=== PATIENT | female | born 1955 | race Caucasian/White ===

== ENCOUNTER 2018-12-15 09:48 | Inpatient (IN) | payer OTHER ==
[2018-12-15] VITALS (8 sets, daily range): BP systolic 98–147; BP diastolic 37–85
[~2018-12-15] VITALS: Ht 165.1 cm; Wt 95.3 kg
[2018-12-15] MEDS ORDERED: NEURONTIN 300300 M1 PO (10:01)
[2018-12-15] MEDS ORDERED: TRAMADOL 50 MG50 MG PO (10:01)
[2018-12-15] MEDS ORDERED: IBUPROFEN 800800 M1 PO (10:02)
[2018-12-15 10:14] LABS: ABSOLUTE NEUTROPHILS 5.9 thou/uL (1.4-8.2); BASOPHILS 0.5 % (0.0-2.0); EOSINOPHILS 1.8 % (0.0-3.0); HEMATOCRIT 32.7 % (37.0-47.0); HEMOGLOBIN 10.8 gm/dL (12.0-15.0); LYMPHOCYTES 14.8 % (24.0-44.0); MCH 30.6 pg (26.0-34.0); MCHC 33.1 g/dL (28.0-37.0); MCV 92.4 fL (80.0-100.0); PLATELET COUNT 210 thou/uL (150-400); POLYS 76.9 % (36.0-66.0); RBC 3.54 mil/uL (4.20-5.00); RDW 13.1 % (10.5-14.5); WBC 7.6 thou/uL (4.0-11.0)
[2018-12-15 10:27] LABS: CALCIUM 8.9 mg/dL (8.5-10.1); CREATININE 0.8 mg/dL (0.6-1.0); POTASSIUM 4.3 mmol/L (3.5-5.1)
[2018-12-15 10:29] LABS: TROPONIN-I 0.07 ng/mL (<0.06)
[2018-12-15 13:47] LABS: TSH 1.709 uIU/mL (0.358-3.740)
--- NOTE | 2018-12-15 17:11 | NUR ---
PT ARRIVED ON UNIT FROM ER THIS AFTERNOON. ADMISSION HX, ASSESSMENT AND EDUCATION COMPLETE. ORDERS IMPLEMENTED. PT C/O PAIN AND NAUSEA, BOTH WERE ADDRESSED WITH MEDICATION. PT RESTING, WILL CONTINUE TO MONITOR.
--- NOTE | 2018-12-15 18:33 | EKG ---
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 : 1955 Requested By: Hanna Chen Order Number: [id number] MD: Brian Allen Measurements Intervals [place] Rate: 57 P: 27 [place]: 165 QRS: 96 QRSD: 108 T: -50 QT: 442 QTc: 431 Interpretive Statements Sinus rhythm Right axis deviation Borderline repolarization abnormality No previous ECG available for comparison Electronically Signed On 12-15-2018 18:33:45 CDT by Brian Allen [email or web address] ��������������������������������������������� <ELECTRONICALLY SIGNED> ���������������������������������������� By: Brian Allen MD ��������������������������������������������� 12/15/18 1833 D: [id number] Brian Allen MD /[place]
--- NOTE | 2018-12-15 19:14 | NUR ---
17:54 LAB CALLED WITH CRITICAL TROPONIN (7.80). NOTIFIED PHYSICIAN, ORDERS RECIEVED AND PT TRANSFERRED TO CCU 204. REPORT CALLED TO
[2018-12-15 19:18] LABS: % SATURATION 16 % (20-39); IRON 42 ug/dL (50-170); TIBC 263 ug/dL (250-450)
--- NOTE | 2018-12-15 23:55 | NUR ---
REPORT RECIEVED FOR KAYLEEN ELDER AND ASSOCIATE DEAN OF STUDENTS. PT BOUGHT FROM PROSTHODONTIST/EDUCATOR IN FAIR CONDITION. RIGHT RADIAL CLOSURE DEVICE IN PLACE. INSTRUCTIONS FOR CARE AND STANDING ORDER RECIEVED FROM CATH RN AND TECH. VSS UPON ARRIVAL. C/O CHEST PAIN, PT STATED NOT BAD BEFORE CATH. PT ASSESSED AND RIGHT RADIAL CATH SITE ASSESSED BY RN AND CATH RN. WILL CONTINUE TO MONITOR.
[2018-12-16] VITALS (17 sets, daily range): BP systolic 95–154; BP diastolic 43–78
--- NOTE | 2018-12-16 03:58 | NUR ---
PT. ARRIVED AT FLOOR AT SHIFT CHANGE; AOX4 SLEEPING; PER ORDERS ASPIRIN 325 AND LOVENOX GIVEN; EKG PERFORMED; CARDIOLOGY NOTIFIED; ORDERS RECEIVED; C/O CHEST PAIN 04/20; CARDIOLOGY NOTIFIED; DR. JULES ARRIVED AROUND 2029; ORDERS RECEIVED; PT. PREPARED TO BE TRANSFER TO LOG HANDLING EQUIPMENT OPERATOR; AFTER CATH PT. TRANSFER TO ICU; ASSESSMENT CHARGED.
[2018-12-16 04:29] LABS: HEMATOCRIT 32.2 % (37.0-47.0); HEMOGLOBIN 10.5 gm/dL (12.0-15.0); MCH 30.7 pg (26.0-34.0); MCHC 32.7 g/dL (28.0-37.0); MCV 93.9 fL (80.0-100.0); RBC 3.43 mil/uL (4.20-5.00); RDW 13.6 % (10.5-14.5); WBC 9.1 thou/uL (4.0-11.0)
[2018-12-16 04:56] LABS: ALBUMIN 3.2 g/dL (3.4-5.0); CREATININE 0.8 mg/dL (0.6-1.0); MAGNESIUM 2.4 mg/dL (1.8-2.4); POTASSIUM 4.2 mmol/L (3.5-5.1); TOTAL BILIRUBIN 0.2 mg/dL (<0.1-1.0); TOTAL PROTEIN 7.4 g/dL (6.4-8.2)
[2018-12-16 04:58] LABS: TROPONIN-I 28.25 ng/mL (<0.06)
--- NOTE | 2018-12-16 05:50 | NUR ---
PT AOX4. ON 2L NC, DESATTS IN SLEEP. NO C/O PAIN CURRENTLY. VSS. RIGHT RADIAL DEVICE REMOVED AT 0215AM. NO BLEEDING OR HEMATOMA NOTED. DRESSING PLACED, C/D/I. FRREQUENT ASSESSMENT DONE ON RIGHT RADIAL ARM, DOCUMENTED. UP TO BSC WITH 2 ASSIST. PT HILLARY AT BEDSIDE DURING THE NIGHT, GIVEN RIVAS TO SLEEP ROOM. NO COMPLAINS PRESENTLY. WILL CONTINUE TO MONITOR PT.
--- NOTE | 2018-12-16 08:07 | NUR ---
AT APPROXIMATELY 0630, PT WAS SITTING AT THE BEDSIDE. PT WAS HAVING A COUGHING SPELL AND WASN'T HAVING SOME ISSUES BREATHING WHILE IN BED. WHILE PT WAS COUGHING, BLEEDING NOTED ON THE RIGHT RADIAL CATH SIDE. THE DRESSING WAS SATURATED. JERROD ARANGO WAS IN THE ROOM. PRESSURE WAS HELD FOR APPROXIMATELY 20 MMINUTES. HOMEOSTASIS ACHIEVED AT 0700 AM. CATH SITE REDRESSED. NO BLEEDING NOTED AT THIS POINT. PT INSTRUCTED TO BE CAREFUL OF RIGHT ARM. JERROD DENNISE INFORMED ABOUT BLEEDING. WILL CONTINUE TO MONITOR
--- NOTE | 2018-12-16 13:27 | NUR ---
assumed care of pt at 0700, pt is a/o times four, denies pain at this time. pt continues to have unctrolled coughing spells, mucinex administered as ordered. pt has been afibrile and other vss. orders rcvd to transfer pt out of ICU report called and given to accepting nurse.
--- NOTE | 2018-12-16 13:43 | EKG ---
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 : 1955 Requested By: Fahad Blue Order Number: [id number] MD: Flako Antonio Measurements Intervals [place] Rate: 56 P: 50 AR: 151 QRS: -35 QRSD: 104 T: 30 QT: 456 QTc: 441 Interpretive Statements Sinus rhythm Abnormal R-wave progression, early transition Inferior infarct, old Nonspecific ST segment abnormality Compared to ECG 12/15/2018 09:57:31 No significant change was found Electronically Signed On 12-16-2018 13:43:21 CDT by Flako Antonio [email or web address] ��������������������������������������������� <ELECTRONICALLY SIGNED> ���������������������������������������� By: Flako Antonio MD, [facility] ��������������������������������������������� 12/16/18 1343 51 51 Flako Antonio MD, [facility] /EPI
--- NOTE | 2018-12-16 13:46 | EKG ---
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: miles : 1955 Requested By: Storm Low Order Number: [id number] MD: Flako Antonio Measurements Intervals [place] Rate: 58 P: 76 [place]: 173 QRS: -41 QRSD: 104 T: 63 QT: 457 QTc: 449 Interpretive Statements Sinus bradycardia Leftward axis Possible inferior infarct, age indeterminate Compared to ECG 12/15/2018 09:57:31 No significant change was found Electronically Signed On 12-16-2018 13:46:08 CDT by Flako Antonio [email or web address] ��������������������������������������������� <ELECTRONICALLY SIGNED> ���������������������������������������� By: Flako Antonio MD, [facility] ��������������������������������������������� 12/16/18 1346 2313 2313 Flako Antonio MD, [facility] /EPI
--- NOTE | 2018-12-16 13:49 | EKG ---
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 : 1955 Requested By: Fahad Blue Order Number: [id number] MD: Flako Antonio Measurements Intervals [place] Rate: 60 P: 53 [place]: 146 QRS: -35 QRSD: 108 T: 6 QT: 438 QTc: 438 Interpretive Statements Sinus rhythm Nonspecific ST segment abnormality Compared to ECG 12/15/2018 09:57:31 No significant change was found Electronically Signed On 12-16-2018 13:48:52 CDT by Flako Antonio [email or web address] ��������������������������������������������� <ELECTRONICALLY SIGNED> ���������������������������������������� By: Flako Antonio MD, [facility] ��������������������������������������������� 12/16/18 1348 6 6 Flako Antonio MD, [facility] /EPI
--- NOTE | 2018-12-16 16:46 | NUR ---
PT ARRIVED TO UNIT AT APPROX 1320 WITH ALL BELONGINGS ACCOMPANIED BY SIGNIF. OTHER AND ICU STAFF NURSE. PT ALERT AND ORIENTED, VSS, UP X1-2 ASSIST. PT ON 2L O2 NC. C/O NON CARD CHEST PAIN FROM COUGHING, WILL MANAGE WITH PAIN MEDS. PT HAS RIGHT RADIAL DRESSING FROM PROCEDURE WITH BRUISING, DRESSING CDI, NO HEMATOMA. TELE PUT ON, PT NSR ON MONITOR. DENIES CONCERNS AT THIS TIME, WILL CONT TO MONITOR
--- NOTE | 2018-12-16 16:55 | NUR ---
PT CONTINUES TO BE ALERT AND ORIENTED, VSS, O2 SATS WNL ON 2L O2 NC, PT HAS COUGHING EPISODES LASTING 1-2 MINS, PT VOMITED AFTER LAST COUGHING. PHYSICIAN NOTIFIED, ORDERS RECEIVED FOR COUGH MEDS. PT C/O NON CARDIAC CHEST PAIN FROM COUGHING, MANAGED WITH IV PAIN MEDS. PT STATED COUGHING MIGHT BE RELATED TO HX OF ESOPHAGEAL SPASMS, PHYSICIAN NOTIFIED AND STATED WILL HAVE GI SEE PT. PT CURRENTLY RESTING IN CHAIR, CALLS APPROPRIATELY, WILL CONT TO MONITOR AND FOLLOW POC.
[2018-12-17 00:45] VITALS: BP 118/68
--- NOTE | 2018-12-17 03:44 | NUR ---
ASSUMED CARE 1900. VSS. ASSESSMENT CHARTED. SENIOR DYNAMICS CRM DEVELOPER PHONE SERVICE USED FOR FARSI- PT NON VERBAL TO SENIOR DYNAMICS CRM DEVELOPER. PT WILL NODE YES/NO TO FOOD/DRINK OFFERED- SPITS OUT PILLS, TAKES TIME. FACES PAIN SCALE USED, PT GRIMACES AND MOANS WHEN MOVED, PRN PAIN MEDS PER EMAR. EX URINARY CATH IN PLACE DRAINING WELL- BLADDER SCANNED UNDER 368, PT DRAINS BETTER WHEN REPOSITIONED. Q2 TURNS. SCDS IN PLACE. PLAN FOR LABS WITH AM WILL CONTINUE TO MONITOR AND WITH POC.
--- NOTE | 2018-12-17 03:52 | NUR ---
ASSUMED CARE 1899. VSS. ASSESSMENT CHARTED. PT C/O NON CARDIAC CP FROM COUGHING EPISODES, COUGHING AND PAIN MEDS PER EMAR GIVEN. PT DENIES ANY N/V.PT LIKES TO SLEEP IN CHAIR, ALARM ON. 2 L NC, RT REMOVED DURING AM STATS WNL. PLAN FOR ECHO THIS AM. WILL CONTINUE TO MONITOR AND WITH POC.
[2018-12-17 04:05] LABS: CREATININE 0.8 mg/dL (0.6-1.0); MAGNESIUM 2.4 mg/dL (1.8-2.4); POTASSIUM 3.8 mmol/L (3.5-5.1)
[2018-12-17 04:06] LABS: HEMOGLOBIN 9.8 gm/dL (12.0-15.0); MCHC 33.7 g/dL (28.0-37.0); MCV 91.9 fL (80.0-100.0); RBC 3.15 mil/uL (4.20-5.00); WBC 13.6 thou/uL (4.0-11.0)
[2018-12-17 04:07] LABS: TROPONIN-I 40.17 ng/mL (<0.06)
[2018-12-17 04:55] VITALS: BP 115/54
[2018-12-17 07:30] VITALS: BP 105/49
--- NOTE | 2018-12-17 07:55 | CATHLAB ---
[address] [address] [facility] [place] [address] INVASIVE PROCEDURE REPORT Name: LUCY CALI Room #: 204-P [facility] IN ..#: [id number] ������������� Admission: 12/15/18 ������������� Attend Phys: Storm Low, Discharge: ��� ������������� ��� Date of : 55 Date of Service: 12/17/18 0755 �� Report #: [id number] �������� ��������������������������������������������[id number] THIS REPORT FOR: //name// APPROVED REPORT Study performed: 12/15/2018 21:02:59 Patient Details Patient Status: In-Patient Room #: The patient is a 63 year-old female Event Personnel Fahad Blue Bulk Coolers Installer, Catalina Beck RN RN, Edita Moreno Sandifer, David Monitor Procedures Performed Left Heart Cath w/or w/o Coronaries [id number] [facility] DENISE Place w/wo Plasty Single CIRC [id number] Indication Non-STEMI , Dyspnea, Unstable angina , Chest pain Risk Factors Obesity, Hypercholesterolemia, Hypertension, Tobacco History () Procedure Narrative The Right Wrist^ was infiltrated with 1% Lidocaine subcutaneous anesthesia. A 6FR SHEATH sheath was inserted into the Right Radial Artery^. Coronary angiography was performed using coronary diagnostic catheters. The right coronary system was accessed and visualized with a JR4 catheter. The left coronary system was accessed and visualized with a 6FR JL 3.5 #[id number] catheter. The left ventricle was accessed and visualized with a PIGTAIL catheter. Left ventricular/Aortic Valve gradient assessed via catheter pullback. Closure device was deployed with a Fr VASC BAND L 27CM #[id number]. There was no hematoma. Intraoperative Conscious Sedation Sedation start time: 21.30 Case end Time: 22.21 Fentanyl 100 mcg Fluoro Time: 13.15 minutes Dose: DAP 48363 cGycm2 [address] [facility] [place] [address] [address] INVASIVE PROCEDURE REPORT Name: LUCY CALI Room #: 204-P [facility] IN .R.#: [id number] ������������� Admission: 12/15/18 ������������� Attend Phys: Storm Low, Discharge: ��� ������������� ��� Date of : 55 Date of Service: 12/17/18 0755 �� Report #: [id number] �������� ��������������������������������������������[id number] Contrast Type and Amount: Omnipaque 210 ml Coronary Angiography The patient's coronary anatomy is co- dominant. Diagnostic Cath Left Main This is a large caliber vessel, patent with no flow-limiting lesions. LAD This is a moderate size caliber vessel, traversing the anterior wall and wrapping around the apex. There is mild to moderate disease in the mid segment, 30-40%. Diagonal 1 This is a moderate size caliber vessel, traveling down the anterolateral wall and divides into 2 branches. There is mild disease in the proximal segment. Circumflex This is a codominant vessel, with a severe occlusion in the proximal segment, 80%. OM1 This vessel is occluded at the ostium. The mid and distal segments of this vessel is filled via collateral circulation from diagonal arteries. Right Coronary This vessel is totally occluded in the midsegment. The PDA is partially filled by collaterals from the left coronary artery. Left Ventriculography The left ventricle is mildly dilated in size with decreased contractility. The left ventricular ejection fraction is estimated to be 40-45%. Left ventricular wall motion abnormalities are present. There is severe hypokinesis involving the mid to basal inferior wall. Hemodynamics The aortic pressure is 107/57 mmHg with a mean of 80 mmHg. The left ventricular pressure is 127/16 mmHg with a mean of mmHg. The left ventricular end diastolic pressure is 35 mmHg. There was no gradient across the aortic valve upon pullback. Pullback from the left ventricle to the aorta revealed no gradient across the aortic valve. PCI Technique Lesion Percutaneous coronary intervention was performed on the proximal circumflex artery segment. The lesion stenosis prior to intervention was 80% with HAMZAH flow. A [employer]TA 6FR XB 3.5 #[id number] Guide Catheter was used to engage the ostium. A Luge Wire .014 x 182CM #[id number] Interventional Guidewire was used to cross the lesion. BALLOON DILATION [facility] [address] [place] [address] INVASIVE PROCEDURE REPORT Name: LUCY CALI Room #: 204-P [facility] IN M.R.#: [id number] ������������� Admission: 12/15/18 ������������� Attend Phys: Storm Low, Discharge: ��� ������������� ��� Date of : 55 Date of Service: 12/17/18 0755 �� Report #: [id number] �������� ��������������������������������������������[id number] A Balloon catheter Euphora RX 2.5 x 15 #[id number] was inserted and inflated up to 12.00atm for 23seconds. STENT DEPLOYMENT A drug-eluting stent XIENCE DARCI RX 2.75 X 15 #[id number] was inserted and inflated up to 18.00atm for 33seconds. POST STENT DEPLOYMENT BALLOON DILATION A Balloon catheter TREK NC RX 3.0 X 12 #[id number] was inserted and inflated up to 18.00atm for 16seconds. Additional Inflation: 20.00atm for 17seconds. Final angiography reveals 5 % stenosis with HAMZAH 3 flow. COMMENTS An attempt was made to traverse the first OM vessel, unsuccessful- more likely that this is a chronic occlusion. Conclusion 1. Successful insertion of a drug-eluting stent into the proximal left circumflex artery(codominant vessel). 2. 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 3. Chronic occlusion of RCA, with partial collateral filling of a small PDA vessel. 4. Mild to moderate segmental LV dysfunction, EF 40-45%. 5. Recommend dual antiplatelet therapy and aggressive risk factor management. ��������������������������������������������� <ELECTRONICALLY SIGNED> ���������������������������������������� By: Fahad Blue MD ��������������������������������������������� 12/17/18 0755 0755 075 Fahad Blue MD /INF
--- NOTE | 2018-12-17 10:08 | 2DMMODE ---
[facility] [address] [place] [address] 2 D/M-MODE ECHOCARDIOGRAM Name: LUCY CALI Room #: 204-P [facility] IN M.R.#: [id number] ������������� Admission: 12/15/18 ������������� Attend Phys: Storm Low, Discharge: ��� ������������� ��� Date of : 55 Date of Service: 12/17/18 1007 �� Report #: [id number] �������� ��������������������������������������������[id number] THIS REPORT FOR: //name// APPROVED REPORT Study performed: 12/17/2018 08:16:30 EXAM: Comprehensive 2D, Doppler, and color-flow Echocardiogram Patient Location: Bedside Room #: 204 Status: routine BSA: 2.02 HR: 82 bpm BP: 105/49 mmHg Rhythm: NSR Other Information Study Quality: Adequate/Technically Difficult Technically limited study due to lung disease. Indications COPD NSTEMI, stent x1 2D Dimensions RVDd: 31.67 mm IVSd: 14.10 (7-11mm) LVOT Diam: 20.41 (18-24mm) LVDd: 56.59 mm PWd: 14.20 (7-11mm) LVDs: 40.34 (25-40mm) Aortic Root: 27.04 mm Volumes Left Atrial Volume (Systole) Single Plane 4CH: 37.28 mL Single Plane 2CH: 69.66 mL LA ESV Index: 30.00 mL/m2 Aortic Valve AoV Peak Paul.: 1.85 m/s AO Peak Gr.: 13.63 mmHg LVOT Max P.93 mmHg LVOT Max V: 0.99 m/s DANIEL Vmax: 1.76 cm2 Mitral Valve [facility] [address] [place] [address] 2 D/M-MODE ECHOCARDIOGRAM Name: LUCY CALI Room #: 204-P [facility] IN .R.#: [id number] ������������� Admission: 12/15/18 ������������� Attend Phys: Storm Low, Discharge: ��� ������������� ��� Date of : 55 Date of Service: 12/17/18 [facility] �� Report #: [id number] �������� ��������������������������������������������[id number] E/A Ratio: 1.2 MV Decel. Time: 247.29 ms MV E Max Paul.: 0.99 m/s MV A Paul.: 0.84 m/s MV PHT: 71.72 ms IVRT: 78.43 ms Pulmonary Valve PV Peak Paul.: 0.93 m/s PV Peak Gr.: 3.53 mmHg Pulmonary Vein P Vein S: 0.70 m/s P Vein A: 0.24 m/s P Vein D: 0.71 m/s P Vein A Dur.: 129.2 msec P Vein S/D Ratio: 0.99 Left Ventricle Left ventricle is at the upper limits of normal. Regional wall motion abnormalities are noted. Mild to moderate concentric left ventricular hypertrophy. The left ventricular systolic function is normal. The left ventricular ejection fraction is within the normal range. LVEF is 55-60%. Moderate diastolic dysfunction is present (pseudonormal filling). Right Ventricle The right ventricle is normal size. The right ventricular systolic function is normal. Atria The left atrium size is normal. The right atrium size is normal. Aortic Valve The aortic valve is not well visualized. No aortic regurgitation is present. There is no aortic valvular stenosis. Mitral Valve The mitral valve is normal in structure. Moderate mitral regurgitation. No evidence of mitral valve stenosis. Tricuspid Valve The tricuspid valve is normal in structure. There is no tricuspid valve regurgitation noted. Unable to assess PA pressure. Pulmonic Valve Pulmonic valve is not well visualized. There is no pulmonic valvular regurgitation visualized. [address] [address] 2 D/M-MODE ECHOCARDIOGRAM Name: LUCY CALI Room #: 204-P [facility] IN M.R.#: [id number] ������������� Admission: 12/15/18 ������������� Attend Phys: Storm Low, Discharge: ��� ������������� ��� Date of : 55 Date of Service: 12/17/18 [facility] �� Report #: [id number] �������� ��������������������������������������������[id number] Great Vessels The aortic root is normal in size. The inferior vena cava is not visualized. Pericardium There is no pericardial effusion. <Conclusion> Left ventricle is at the upper limits of normal. LVEF is 55-60%. The aortic valve is not well visualized. The mitral valve is normal in structure. Moderate mitral regurgitation. The tricuspid valve is normal in structure. There is no tricuspid valve regurgitation noted. Unable to assess PA pressure. Pulmonic valve is not well visualized. There is no pericardial effusion. ��������������������������������������������� <ELECTRONICALLY SIGNED> ���������������������������������������� By: Benito Neil MD ��������������������������������������������� 12/17/18 1007 1007 1007 Benito Neil MD /INF
[2018-12-17 11:10] VITALS: BP 100/59
--- NOTE | 2018-12-17 16:20 | NUR ---
PT CONT TO HAVE HEAVY NON PRODUCTIVE COUGH, PRN TESSALON PEARLS AND PAIN MEDS GIVEN. RT RADIAL CATH SITE DRESSING C/D/I.
[2018-12-17 18:40] VITALS: BP 100/52
[2018-12-17 20:45] VITALS: BP 101/50
--- NOTE | 2018-12-18 03:14 | NUR ---
ASSUMED CARE 1900. VSS. ASSESSMENT CHARTED. PT NON CARDIAC CHEST PAIN FROM COUGHING, PRN PAIN AND COUGH MEDS PER EMAR. PTS COUGH SOUNDS BETTER THAN PREVIOUS NIGHT, CONTINUES NON PRODUCTIVE. ST BY TO COMMOD. PLAN FOR LABS THIS AM. WILL CONTINUE TO MONITOR AND WITH POC.
[2018-12-18 04:51] LABS: HEMATOCRIT 29.5 % (37.0-47.0); HEMOGLOBIN 9.9 gm/dL (12.0-15.0); MCH 31.1 pg (26.0-34.0); MCHC 33.7 g/dL (28.0-37.0); MCV 92.3 fL (80.0-100.0); RBC 3.2 mil/uL (4.20-5.00); RDW 13.1 % (10.5-14.5); WBC 10.4 thou/uL (4.0-11.0)
[2018-12-18 04:55] VITALS: BP 102/60
[2018-12-18 04:56] LABS: CALCIUM 8.4 mg/dL (8.5-10.1); CREATININE 0.9 mg/dL (0.6-1.0); MAGNESIUM 2.4 mg/dL (1.8-2.4); POTASSIUM 3.6 mmol/L (3.5-5.1)
[2018-12-18 07:51] VITALS: BP 92/47
[2018-12-18 10:49] VITALS: BP 103/53
--- NOTE | 2018-12-18 15:11 | NUR ---
patient admits with copd exacerbation. Sp with nursing chart reviewed. 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 Has health insurance. She has had a continuous cough but has improved. No needs anticipated at ri.
[2018-12-18 15:15] VITALS: BP 99/62
--- NOTE | 2018-12-18 15:42 | NUR ---
met with patient who admits with copd exacerbation. 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 She reports she has been using a tranfer chair at home. All needs on one level in home. She resides with her partner and aunt. She has recent cataract sx, awaiting glasses and does not drive at this time. Her partner can assist at nd. 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 She has home CPAP machine she reports needs new tubing. She is unsure of company but plans to look at the box to determine equipt company and call regarding service. Anticipate no needs at nd.
--- NOTE | 2018-12-18 18:41 | NUR ---
ASSUMED CARE, PATIENT AWAKE AND ALERT. ONLY PAIN WHEN COUGHING, MID CHEST. ASSIST TO PIVOT TO BSC. RA, NO DISTRESS. POSSIBLE DISCHARGE ON 12/19
[2018-12-18 19:55] VITALS: BP 114/59
[2018-12-19 04:23] LABS: CALCIUM 8.5 mg/dL (8.5-10.1); CREATININE 0.9 mg/dL (0.6-1.0); MAGNESIUM 2.5 mg/dL (1.8-2.4); POTASSIUM 4.5 mmol/L (3.5-5.1)
[2018-12-19 04:31] LABS: HEMATOCRIT 29.8 % (37.0-47.0); HEMOGLOBIN 9.9 gm/dL (12.0-15.0); MCH 30.7 pg (26.0-34.0); MCHC 33.2 g/dL (28.0-37.0); MCV 92.5 fL (80.0-100.0); RBC 3.23 mil/uL (4.20-5.00); RDW 13.4 % (10.5-14.5); WBC 10.5 thou/uL (4.0-11.0)
[2018-12-19 04:55] VITALS: BP 97/51
[2018-12-19 07:06] VITALS: BP 102/55
--- NOTE | 2018-12-19 07:15 | NUR ---
ASSUME CARE 1900. PT/VITALS STABLE. INTERMITTENT CHEST (NON CARDIAC) AND BILATERAL LOWER EXTREMITY PAIN. ASSESSMENT AAS CHARTED. PROGRESSING WELL WITH POC. SR ON MONITOR WITH CONTROLLED RATE. ADEQUATE REST NOTED. PROGRESSING WELL WITH POC. PLAN IS A POSSIBLE DISCHARGE TODAY. WILL CONTINUE TO FOLLOW WITH POC
[2018-12-19 10:13] VITALS: BP 102/52
[2018-12-19 14:13] VITALS: BP 94/52
[2018-12-19] MEDS ORDERED: LEVAQUIN 750 M750 MG PO (14:36)
[2018-12-19] MEDS ORDERED: PREDNISONE 10 M10 MG PO (14:37)
[2018-12-19] MEDS ORDERED: METOPROLOL SUCC25 M1 PO (14:38)
[2018-12-19] MEDS ORDERED: ATORVASTATIN CA40 MG PO (14:38)
[2018-12-19] MEDS ORDERED: PLAVIX 75 MG TA75 M1 PO (14:38)
[2018-12-19] MEDS ORDERED: ASPIRIN325 PO (14:38)
[2018-12-19] MEDS ORDERED: TESSALON PERLE100 MG PO (14:39)
[2018-12-19] MEDS ORDERED: MUCINEX600 MG PO (14:39)
[2018-12-19] MEDS ORDERED: CHANTIX1 EACH PO (14:43)
[2018-12-19 14:56] VITALS: BP 94/52
--- NOTE | 2018-12-19 15:41 | NUR ---
ASSUMED CARE THIS AM. O X 4, NO RESPIRATORY DISTRESS NOTED. NO CHEST PAIN. VSS. SBA, PT PIVOTS TO BSC WITHOUT DIFFICULTY. DR. BELLAMY TOLD PATIENT SHE COULD GO HOME AFTER LUNCH. DISCHARGE ORDERS RECIEVED AND 9 PRESCRIPTIONS PRINTED. 1515 DISCHARGE INSTRUCTIONS DISCUSSED WITH PATIENT WELL MEDICATIONS. QUESTIONS ASKED AND ANSWERED. AWAITING TRANSPORT AND TRANSPORTATION HOME.
--- NOTE | 2018-12-24 14:17 | HC ---
[facility] [place] [address] CONSULTATION Name: LUCY CALI Room #: 204-P [facility] IN M.R.#: [id number] Admission: 12/15/18 ������������������ Attend Phys: Storm Low MD Discharge: 12/19/18 ������������������ Date of : 55 Report #: [id number] THIS REPORT FOR: //name// CC: Real Low Cardiology Consultation REASON FOR CONSULTATION: Chest pain and elevated troponin. HISTORY OF PRESENT ILLNESS: The patient is a 63-year-old with no significant past medical history other than tobacco abuse. She reports that 20 years ago, she had a cardiac catheterization and was told things were normal and that she likely had esophageal spasm. She reports that yesterday she noted some chest discomfort, went to bed early. She woke up this morning and was having worsening chest pain with diaphoresis. She presented here to the emergency room with initial EKG showing sinus rhythm and no ischemic changes and initial troponin that was normal. She was admitted and cardiac enzymes came back elevated at 7. She was transferred to the CCU. Repeat EKG was performed, which I also reviewed and showed no ischemic changes. Once down in the CCU, she was on an IV Lovenox and pain medications. She had some initial relief and was able to sleep, but then was awoken by worsening chest pain. She reports that her chest pain has been as severe as / and is currently 7/10. PAST MEDICAL HISTORY: Tobacco abuse. SOCIAL HISTORY: She is a 1 pack per day smoker. FAMILY HISTORY: Significant for CAD. ALLERGIES: None. HOME MEDICATIONS: Include gabapentin, tramadol and ibuprofen. PHYSICAL EXAMINATION: VITAL SIGNS: Temperature is 37.2, pulse 58, respiration 16, blood pressure 98/65, sats are 94%. GENERAL: She is in no acute distress, alert and oriented times 3. HEENT: Oropharynx is clear. NECK: Supple, no thyromegaly. HEART: Regular rate and rhythm with no murmurs, rubs or gallops. CHEST: Lungs are clear to auscultation bilaterally. ABDOMEN: Soft, nontender, nondistended, no hepatosplenomegaly. EXTREMITIES: No clubbing, cyanosis, edema. NEUROLOGIC: Cranial nerves 2-12 are intact. LABORATORY DATA: Hemoglobin is 10.8, white count 7.6, platelets 210. Troponin [address] [address] CONSULTATION Name: LUCY CALI Room #: 204-P [facility] IN M.R.#: [id number] Admission: 12/15/18 ������������������ Attend Phys: Storm Low MD Discharge: 12/19/18 ������������������ Date of : 55 Report #: [id number] 7.8. Potassium is 4.3, creatinine is 0.8. ProBNP is 209. TSH is normal. IMAGING DATA: CT of the chest showed no acute process with no evidence of pneumonia, no pulmonary embolus, no aortic dissection. Chest x-ray shows no acute process. ASSESSMENT: 1. Unstable angina. 2. Non-ST segment elevation myocardial infarction. 3. Tobacco abuse. PLAN: In summary, the patient is a 63-year-old female with new onset chest pain with elevated troponin, consistent with unstable angina and a non-ST segment elevation ND. Given that given that she has continued to have some chest discomfort, we will proceed with diagnostic cardiac catheterization and possible coronary intervention. Dr. Blue will perform the procedure. We have discussed the details of the procedure including the risks, which include, but not limited to bleeding, vascular damage, as well as stroke and ND. She understands these risks and is willing to proceed. ��������������������������������������������� <ELECTRONICALLY SIGNED> ���������������������������������������� By: Brian Allen MD ��������������������������������������������� 12/24/18 1417 49 [phone] Brian Allen MD /nt
== END 2018-12-19 16:31 | disposition home or self-care (01) | DRG 246 ==
LOC: ER 09:48 → 2N 12:19 → EROBS 12:19 → ICU 14:13 → 4W 14:20 → 2N 18:49 → ICU 22:58 → 2N 12-16 13:03 → ENTRNSPT 12-19 16:09 → 2N 12-19 16:31
PROVIDERS: Emergency Medicine; Internal Medicine Cardiovascular Disease; ADMIT Internal Medicine
DX: I21.4 Non-ST elevation (NSTEMI) myocardial infarction (principal); I50.33 Acute on chronic diastolic (congestive) heart failure; J44.0 Chronic obstructive pulmonary disease with (acute) lower respiratory infection; J44.1 Chronic obstructive pulmonary disease with (acute) exacerbation; I20.0 Unstable angina; I25.5 Ischemic cardiomyopathy; F17.210 Nicotine dependence, cigarettes, uncomplicated; D64.9 Anemia, unspecified; E78.5 Hyperlipidemia, unspecified; Z79.899 Other long term (current) drug therapy; Z71.6 Tobacco abuse counseling; Z28.21 Immunization not carried out because of patient refusal
CPT/HCPCS: 10078; 10081

== ENCOUNTER 2019-02-17 12:57 | Inpatient (IN) | payer OTHER ==
[~2019-02-17] VITALS: Ht 165.1 cm; Wt 98.9 kg
[~2019-02-17 12:57] MED LIST: ASPIRIN325 PO; ATORVASTATIN CA40 MG PO; CHANTIX1 EACH PO; IBUPROFEN 800800 M1 PO; LEVAQUIN 750 M750 MG PO; METOPROLOL SUCC25 M1 PO; MUCINEX600 MG PO; NEURONTIN 300300 M1 PO; PLAVIX 75 MG TA75 M1 PO; PREDNISONE 10 M10 MG PO; TESSALON PERLE100 MG PO; TRAMADOL 50 MG50 MG PO
[2019-02-17 13:09] VITALS: BP 139/75
[2019-02-17 13:33] LABS: ABSOLUTE NEUTROPHILS 3.4 thou/uL (1.4-8.2); BASOPHILS 1.4 % (0.0-2.0); EOSINOPHILS 6.1 % (0.0-3.0); HEMATOCRIT 32.4 % (37.0-47.0); MCH 30.8 pg (26.0-34.0); MCHC 34.1 g/dL (28.0-37.0); MCV 90.4 fL (80.0-100.0); MONOCYTES 7.7 % (1.0-8.0); PLATELET COUNT 177 thou/uL (150-400); POLYS 54.8 % (36.0-66.0); RBC 3.58 mil/uL (4.20-5.00); RDW 13.7 % (10.5-14.5); WBC 6.2 thou/uL (4.0-11.0)
[2019-02-17 13:45] LABS: CREATININE 0.8 mg/dL (0.6-1.0); POTASSIUM 4.2 mmol/L (3.5-5.1)
[2019-02-17 13:54] LABS: TROPONIN-I 0.11 ng/mL (<0.06)
[2019-02-17 15:23] VITALS: BP 130/70
--- NOTE | 2019-02-17 16:27 | NUR ---
REC PT AROUND 1620 FROM ED, A&0X4, WALKS FROM CAR TO HOUSE W/WC, IN HOUSE IN W/C AND USES LEGS TO MOVE AROUND. L KNEE IS BONE ON BONE AND SHE IS NOT A CANDIDATE FOR SURGERY FOR A YEAR D/T DRUG ALLUDING STENT PLACED IN DECEMBER. CHEST PAIN NOW, RATES AT 6/10, WILL ADM MEDICINE WHEN READY. NITRO DIDN'T WORK FOR HER IN ED, AND BP IS 115/80, HR 55. CARDIAC MONITORED, CAME UP ON HEP AND NS, SETTING UP PUMPS; SHE WAS VERY THIRSTY, SHE'S AWAITING HER SPOUSE. WILL CONTINUE TO MONITOR. AND NURSING WILL MONITOR GTT AND IV SITE. ADVENTITIOUS LUNG SOUNDS INSPIRATORY/EXPIRATORY, PSORIASIS PREVALENT AND SHE ASKS FOR RADIAL CATH VERSUS GROIN SITE IT'S WORSE AT [place]OWER [place], SHE ALSO HAS MANY SKIN TAGS DOWN IN GROIN AREA.
[2019-02-17 19:06] LABS: PROTIME 10.9 Seconds (9.3-11.4)
[2019-02-17 19:11] VITALS: BP 95/45
[2019-02-18 03:23] LABS: CALCIUM 8.8 mg/dL (8.5-10.1); POTASSIUM 4.1 mmol/L (3.5-5.1)
[2019-02-18 03:25] LABS: HEMATOCRIT 31.8 % (37.0-47.0); HEMOGLOBIN 10.4 gm/dL (12.0-15.0); MCH 30.2 pg (26.0-34.0); MCHC 32.6 g/dL (28.0-37.0); MCV 92.6 fL (80.0-100.0); RBC 3.43 mil/uL (4.20-5.00); WBC 3.5 thou/uL (4.0-11.0)
[2019-02-18 05:20] VITALS: BP 121/48
--- NOTE | 2019-02-18 07:26 | NUR ---
ASSUME CARE 1900. PT/VITALS STABLE. INTERMITTENT CHEST PAIN. MORPHINE/HYDROCODONE FOR PAIN RELIEF. PT ON HEPARIN DRIP AND NPO FOR FURTHER POC FROM CARDIOLOGY. ASSESSMENT CHARTED. PROGRSSING WELL WITH POC. WILL CONTINUE TO MONITOR
--- NOTE | 2019-02-18 08:04 | EKG ---
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 : 1955 Requested By: Michael Wu Order Number: [id number] MD: Brian Allen Measurements Intervals [place] Rate: 62 P: 48 CA: 159 QRS: -44 QRSD: 106 T: -2 QT: 425 QTc: 432 Interpretive Statements Sinus rhythm Left axis deviation Borderline repolarization abnormality Compared to ECG 12/16/2018 07:47:20 Left-axis deviation now present ST (T wave) deviation no longer present Electronically Signed On 02-18-2019 8:03:56 CDT by Brian Allen [email or web address] ��������������������������������������������� <ELECTRONICALLY SIGNED> ���������������������������������������� By: Brian Allen MD ��������������������������������������������� 02/18/19 0803 1307 1307 Brian Allen MD /EPI
--- NOTE | 2019-02-18 08:05 | EKG ---
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 : 1955 Requested By: Flako Antonio Order Number: [id number] MD: Brian Allen Measurements Intervals [place] Rate: 51 P: 58 ND: 168 QRS: -42 QRSD: 107 T: -22 QT: 458 QTc: 422 Interpretive Statements Sinus rhythm Abnormal R-wave progression, late transition Left ventricular hypertrophy Borderline T abnormalities, inferior leads Compared to ECG 12/16/2018 07:47:20 Left ventricular hypertrophy now present T-wave abnormality now present ST (T wave) deviation no longer present Electronically Signed On 02-18-2019 8:04:55 CDT by Brian Allen [email or web address] ��������������������������������������������� <ELECTRONICALLY SIGNED> ���������������������������������������� By: Brian Allen MD ��������������������������������������������� 02/18/19 0804 1640 1640 Brian Allen MD /EPI
--- NOTE | 2019-02-18 08:08 | EKG ---
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 : 1955 Requested By: Flako Antonio Order Number: [id number] MD: Brian Allen Measurements Intervals [place] Rate: 63 P: 47 DE: 163 QRS: -41 QRSD: 110 T: -25 QT: 445 QTc: 456 Interpretive Statements Sinus rhythm Atrial premature complex Left ventricular hypertrophy Nonspecific T abnormalities, inferior leads Compared to ECG 12/16/2018 07:47:20 Atrial premature complex(es) now present Left ventricular hypertrophy now present T-wave abnormality now present ST (T wave) deviation no longer present Electronically Signed On 02-18-2019 8:08:05 CDT by Brian Allne [email or web address] ��������������������������������������������� <ELECTRONICALLY SIGNED> ���������������������������������������� By: Brian Allen MD ��������������������������������������������� 02/18/19 0808 0754 0754 Brian Allen MD /EPI
[2019-02-18 09:00] VITALS: BP 116/51
--- NOTE | 2019-02-18 10:52 | NUR ---
met with patient and , and family in room. 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 All needs on one level. 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 They live in [facility]. Dr rutledge his prev PCP retired. they see a RN practioner and Dr Blue is nursing home administrator. drives in areas of [place]. Exteneded family drive to [facility] area. Patient currently on oxygen he does no use at home. [employer] following for dc planning.
[2019-02-18 11:36] VITALS: BP 88/44
--- NOTE | 2019-02-18 13:54 | NUR ---
Assumed care at shift change, alert and oriented x4. BP 88/42 at 1145, and Banday notified. Afebrile and SR on the monitor. Will continue with POC.
[2019-02-18 19:30] VITALS: BP 107/53
[2019-02-19] VITALS (7 sets, daily range): BP systolic 98–109; BP diastolic 51–57
--- NOTE | 2019-02-19 06:10 | NUR ---
ASSUME CARE 1900. PT/VITALS STABLE. /O X 4. INTERMITTENT HEADACHES. PT IS UP WITH ASSISTANCE TO [facility]SC. WHEEL CHAIR FOR LONGER DISTANCES DUE TO KNEE INJURY. PT IS NON COMPLIANT WITH DIET AND TREATMENT. EDUCTION DONE TON THE NEED TO STAY ON A HEART HEALTHY DIET EVEN IF THE DIAGNOSIS IS COPD EXACERBATION. ASSESSMENT CHARTED. PROGRESSIGN MODERATELY WITH POC. PLAN IS TO CONTINUE TO TAPER OFF STEROIDS AND MONITOR RESP FUNCTION. WILL CONTINUE TO MONITOR
--- NOTE | 2019-02-19 07:00 | HC ---
[facility] [place] [address] CONSULTATION Name: LUCY CALI Room #: 219-P ADM IN M.R.#: [id number] Admission: 02/17/19 ������������������ Attend Phys: Lucrecia Vann MD Discharge: ������������������ Date of : 55 Report #: [id number] THIS REPORT FOR: //name// CC: Real Vann DATE OF SERVICE: 02/18/2019 REFERRAL PHYSICIAN: Dr. Vann. REASON FOR REFERRAL: Dyspnea and chest discomfort. HISTORY OF PRESENT ILLNESS: The patient is a 63-year-old white female with a history of coronary artery disease, who presents with chest discomfort and dyspnea. A pulmonary consultation was requested. The patient was recently found to have coronary artery disease. A stent was placed around December of this year. The patient has known COPD. She smokes about less than a pack a day for the last 50 years. She has been followed by fiber machine tender at the [facility], Dr. Rojas. For the past 2-3 days, she has noticed chest pressure-like discomfort in the [facility] area. She denies any recent febrile illness, productive cough or hemoptysis. She denies any history of dyspepsia. PAST MEDICAL HISTORY: As mentioned above including coronary artery disease, remote history of CVA, chronic back pain with prior back surgery by a neurosurgeon. She has had two prior back surgeries. ALLERGIES: None. CURRENT MEDICATIONS: Reviewed including aspirin, Plavix 75 mg once a day, atorvastatin 40 mg once a day, Toprol XL 25 mg once a day, Mucinex, gabapentin 300 mg p.o. t.i.d. and Ultram. Currently, she is also on a nebulized DuoNebs q.i.d. p.r.n. and Solu-Medrol ____ mg IV q.i.d. FAMILY HISTORY: Notable for myocardial infarction in the mother. Father also had coronary artery disease. SOCIAL HISTORY: Tobacco use as mentioned above, she continued to smoke less than a pack a day. Denies any alcohol use. She is . She has children who live in town. [facility] [address] [place] [address] CONSULTATION Name: LUCY CALI Room #: 219-P [facility] IN .R.#: [id number] Admission: 02/17/19 ������������������ Attend Phys: Lucrecia Vann MD Discharge: ������������������ Date of : 55 Report #: [id number] REVIEW OF SYSTEMS: As mentioned above, otherwise 10-point system is negative. PHYSICAL EXAMINATION: GENERAL: She is awake, alert, in no distress. VITAL SIGNS: Temperature is 98 degrees Fahrenheit, pulse is 80, respiratory rate is 18, blood pressure 116/51 mmHg and saturation 95%. HEENT: Normocephalic and atraumatic. NECK: Supple, no lymphadenopathy or thyromegaly. CHEST: Breath sounds are moderate bilaterally with mild expiratory wheezes. CARDIOVASCULAR: Normal S1 and S2. No murmurs or gallop. There is no JVD and no carotid bruit. Pulses are 2+/4+ bilaterally. ABDOMEN: Soft, nontender, no organomegaly or masses felt. GENITOURINARY: Deferred. RECTAL: Deferred. EXTREMITIES: There is no edema, cyanosis or clubbing. LABORATORY DATA: Chest x-ray is notable for mild interstitial changes in the left lung field with possible Pearl B lines. No pleural effusion is seen. BNP is 1000. Troponin is 0.11. EKG shows no acute ischemic changes. Electrolytes are normal. WBC 6200, hemoglobin 11.0, platelets are normal, no evidence of bandemia and eosinophil mildly elevated at 6%. IMPRESSION 1. Dyspnea, chest discomfort in this 63-year-old white female. She continues to smoke. She has a history of COPD. Etiology is probably related to exacerbation of chronic obstructive pulmonary disease. With elevated troponin, cannot rule out cardiac component. Reflux disease is also considered. 2. Chronic obstructive pulmonary disease with mild exacerbation. Unfortunately, the patient continues to smoke. 3. Tobacco abuse. 4. Coronary artery disease, recent stent placement in 12/2018. RECOMMENDATION: Agree with corticosteroids and bronchodilators. DVT and GI prophylaxis recommended. Strongly recommend smoking cessation. Thank you for this consultation. ��������������������������������������������� <ELECTRONICALLY SIGNED> ���������������������������������������� By: Lux Lewis MD ��������������������������������������������� 02/19/19 0700 1604 0020 Lux Lewis MD /nt
--- NOTE | 2019-02-19 08:51 | HC ---
[facility] [place] [address] CONSULTATION Name: LUCY CALI Room #: 219-P ADM IN M.R.#: [id number] Admission: 02/17/19 ������������������ Attend Phys: Lucrecia Vann MD Discharge: ������������������ Date of : 55 Report #: [id number] THIS REPORT FOR: //name// CC: Real Vann DATE OF SERVICE: 02/17/2019 REASON FOR CONSULTATION: Chest pain. HISTORY OF PRESENT ILLNESS: The patient is a 63-year-old with COPD and coronary disease with fairly recent stenting of the proximal circumflex, which fed an occluded, but reasonably well collateralized first marginal branch. She also has known occlusion of the right coronary with collateral filling and moderate LAD disease. Medicated stent was placed to the proximal circumflex. She now presents with 3 days of continuous chest pressure. This is associated with cough, wheezing and shortness of breath. She denies fevers or chills. She denies orthopnea or paroxysmal nocturnal dyspnea, although has had mild lower extremity edema. No history of palpitations, near syncope or syncope. She reports compliance with her pharmacologic regimen. ALLERGIES: No known drug allergies. MEDICATIONS: Include aspirin, Plavix 75 mg daily, atorvastatin 40 mg daily, Toprol-XL 25 mg daily, Tessalon Perles, Mucinex, gabapentin 900 mg 3 times a day, and Ultram. PAST MEDICAL HISTORY: Medical records have been reviewed and include a history of a right knee replacement, cataract excision, back surgery, coronary disease and COPD. SOCIAL HISTORY: She is an ongoing smoker. FAMILY HISTORY: Notable for premature coronary artery disease. REVIEW OF SYSTEMS: All systems negative except as that noted above. PHYSICAL EXAMINATION: GENERAL: A pleasant woman, who is alert. VITAL SIGNS: Blood pressure is 130/70, heart rate 69 and regular, saturations 95% on room air, 5 feet 5 inches tall, 212 pounds. HEENT: There is neither xanthelasma, subcutaneous xanthomata, oral mucosal or digital cyanosis or kyphoscoliosis present. CHEST: Reveals scattered rhonchi and mid to end expiratory diffuse wheezes, is a prolonged expiratory phase. ABDOMEN: Soft and nontender. [facility] [address] [place] [place] [address] CONSULTATION Name: LUCY CALI Room #: 219-P ADM IN M.R.#: [id number] Admission: 02/17/19 ������������������ Attend Phys: Lucrecia Vann MD Discharge: ������������������ Date of : 55 Report #: [id number] EXTREMITIES: Without cyanosis or clubbing. Trace pedal edema is pleasant. Radial pulses are 2+. NEUROLOGIC: She is alert with a nonfocal exam. LABORATORY DATA: ProBNP of 1078. Sodium 137, potassium 4.2. Troponin 0.11. Peak troponin in December was 40. White count 6.2, hemoglobin 11, hematocrit 32, platelet count 177. Chest x-ray suggests mild interstitial pulmonary fibrosis. No findings of congestive heart failure. EKG: Sinus rhythm with leftward axis, poor R-wave progression. IMPRESSION: 1. Non-Q-wave myocardial infarction. This is suspected type 2 myocardial infarction in the setting of disease with bronchospasm and hypoxemia. 2. Coronary disease with known occlusion of the distal right coronary and marginal branch with collateralization, moderate left anterior descending disease. 3. Ischemic cardiomyopathy, mild. 4. Chronic diastolic heart failure. 5. Dyslipidemia. 6. Ongoing tobacco dependency. RECOMMENDATIONS: 1. I will review her recent coronary angiograms. 2. Continued use of dual antiplatelet therapy. 3. Consider pulmonary evaluation. Further thoughts will be forthcoming based on this evaluation. Thank you for asking me to participate in her care. ��������������������������������������������� <ELECTRONICALLY SIGNED> ���������������������������������������� By: Flako Antonio MD, FACC ��������������������������������������������� 02/19/19 0851 1709 11 Flako Antonio MD, FACC /nt
[2019-02-19] MEDS ORDERED: IPRAT-ALBUT 0.5-3 ML INH (12:30)
[2019-02-19] MEDS ORDERED: ADVAIR HFA 230M12 GM INH (12:31)
[2019-02-19] MEDS ORDERED: CEFDINIR300 MG PO (12:39)
--- NOTE | 2019-02-19 13:15 | NUR ---
PATIENT ADMITS WITH COPD EXACERBATION. PATIENT RESIDES AT HOME WITH S/O HER DTR AND GRANDCHILDREN. ALL PATIENTS NEED ON ONE LEVEL. SHE HAS SEVERE ARTHRITIS OF KNEE AND REQUESTS WC FOR HOME. SHE HAS BEEN USING A TRANSFER CHAIR SHE STANDS BEHIND AND AMBULATES SHORT DISTANCES AT HOME AND REPORTS PAIN. SHE REPORTS PLAN TO HAVE KNEE SX IN FUTURE. PATIENT REPORTS SHE DOES HAVE A WALKER AT HOME. REQUESTED WHEELCHAIR FROM [facility] WITH SCRIPT AND DOCUMENTATION SENT FROM IN [employer]ASHING AND [employer]CREENING [employer]PER[employer]. VERIFIED PATIENTS ADDRESS AND PCP DR STARLA KLEIN. ALERTED TO PATIENT WILL BEGIN PROCESS OF OBTAINING WC. WILL PLAN DELIVARY TO HOME. PATIENT TO HAVE PH NUMBER OF [facility] TO F/U FOR WC FOR HOME. PATIENT REPORTS SHE NEEDS NEW TUBING FOR NEBULIZER. OFFERED TO OBTAIN NEW NEBULIZER FOR HOME BUT PATIENT DECLINED AND REPORTS SHE IS TAKING TUBING FROM HOSPITAL. SHE LIKES THE NEBULIZER SHE HAS AT HOME. PATIENT HAS ORDERS FOR HOME HEALTH CARE. SHE HAS NO PREFERENCE FOR HOME HEALTH AGENCY AND AGREEABLE TO [facility]. [facility] INQUIRING IF CAN ACCEPT.
--- NOTE | 2019-02-19 14:01 | NUR ---
FAXED REFERRAL TO [facility] FOR HOME O2 SPOKE WITH ROSIBEL AT [facility] AND SHE RECEIVED THE REFERRAL AND HAVING THE O2 TANK DELIVERED TO PT PRIOR TO DC TO HOME.
--- NOTE | 2019-02-19 14:04 | NUR ---
FAXED REFERRAL TO [facility] SPOKE WITH SAGE AND SHE RECEIVED REFERRAL WILL SUBMIT FOR AUTH FOR WHEELCHAIR. DCP TO FOLLOW.
--- NOTE | 2019-02-19 14:33 | NUR ---
PT DISCHARGING TODAY HOME WITH [facility] SPOKE WITH NIXON IN ADM SHE WILL NOTIFY PT TIME OF VISITS.
--- NOTE | 2019-02-19 17:12 | NUR ---
ASSUMED CARE AT SHIFT CHANGE, ALERT AND OREINTED X4. VSS AND SR ON THE MONITOR. DISCHARGE AND MEDICATIONS INSTRUCTIONS GIVEN AND PATIENT DISCHARGED HOME WITH FAMILY.
== END 2019-02-19 17:07 | disposition home health service (06) | DRG 281 ==
LOC: ER 12:57 → EROBS 15:00 → 2N 15:00 → ENTRNSPT 02-19 16:46 → 2N 02-19 17:07
PROVIDERS: Nurse Practitioner; ADMIT Internal Medicine
DX: I21.A1 Myocardial infarction type 2 (principal); J44.1 Chronic obstructive pulmonary disease with (acute) exacerbation; I50.32 Chronic diastolic (congestive) heart failure; Z96.651 Presence of right artificial knee joint; F17.210 Nicotine dependence, cigarettes, uncomplicated; I25.10 Atherosclerotic heart disease of native coronary artery without angina pectoris; I25.5 Ischemic cardiomyopathy; E78.5 Hyperlipidemia, unspecified; G89.29 Other chronic pain; M54.9 Dorsalgia, unspecified; K21.9 Gastro-esophageal reflux disease without esophagitis; L40.9 Psoriasis, unspecified; E66.01 Morbid (severe) obesity due to excess calories; M13.862 Other specified arthritis, left knee; E78.00 Pure hypercholesterolemia, unspecified; Z79.899 Other long term (current) drug therapy; Z82.49 Family history of ischemic heart disease and other diseases of the circulatory system; Z95.5 Presence of coronary angioplasty implant and graft; Z79.82 Long term (current) use of aspirin; Z79.02 Long term (current) use of antithrombotics/antiplatelets; Z98.49 Cataract extraction status, unspecified eye; Z86.73 Personal history of transient ischemic attack (TIA), and cerebral infarction without residual deficits; Z71.6 Tobacco abuse counseling; Z68.36 Body mass index [BMI] 36.0-36.9, adult; Z99.3 Dependence on wheelchair
CPT/HCPCS: 10081

== ENCOUNTER → 2019-06-13 | Outpatient (CLI) | payer OTHER ==
[~2019-06-13] MED LIST changes: +ADVAIR HFA 230M12 GM INH; +CEFDINIR300 MG PO; +IPRAT-ALBUT 0.5-3 ML INH
--- NOTE | 2019-06-13 15:13 | 2DMMODE ---
[facility] [place] [address] 2 D/M-MODE ECHOCARDIOGRAM Name: CODY CALIWinnie Tianna Room #: REG [facility]#: [id number] Admission: 06/13/19 Attend Phys: Fahad Blue MD Discharge: Date of : 55 Report #: [id number] THIS REPORT FOR: //name// APPROVED REPORT Study performed: 06/13/2019 14:06:57 EXAM: Comprehensive 2D, Doppler, and color-flow Echocardiogram Patient Location: Out-Patient Room #: Echo lab 2 Status: routine BSA: 1.96 HR: 73 bpm BP: 110/64 mmHg Rhythm: NSR Other Information Study Quality: Adequate Indications COPD CAD Hypertension/HDD 2D Dimensions RVDd: 37.83 mm IVSd: 10.21 (7-11mm) LVOT Diam: 21.30 (18-24mm) LVDd: 53.99 mm PWd: 10.72 (7-11mm) Ascending Ao: 31.07 (22-36mm) LVDs: 44.55 (25-40mm) Aortic Root: 32.38 mm IVC: 19.00 mm Volumes Left Atrial Volume (Systole) Single Plane 4CH: 51.86 mL Single Plane 2CH: 79.68 mL LA ESV Index: 37.00 mL/m2 Aortic Valve AoV Peak Paul.: 1.79 m/s AO Peak Gr.: 12.89 mmHg LVOT Max P.77 mmHg LVOT Max V: 1.09 m/s DANIEL Vmax: 2.17 cm2 Mitral Valve E/A Ratio: 0.9 [facility] [address] [place] [address] 2 D/M-MODE ECHOCARDIOGRAM Name: KARELYLUCY Tianna Room #: REG CL [facility]#: [id number] Admission: 06/13/19 Attend Phys: Fahad Blue MD Discharge: Date of : 55 Report #: [id number] MV Decel. Time: 336.58 ms MV E Max Paul.: 0.58 m/s MV A Paul.: 0.66 m/s MV PHT: 97.61 ms IVRT: 119.95 ms Pulmonary Valve PV Peak Paul.: 1.14 m/s PV Peak Gr.: 5.23 mmHg Pulmonary Vein P Vein S: 0.58 m/s P Vein A: 0.22 m/s P Vein D: 0.42 m/s P Vein A Dur.: 87.7 msec P Vein S/D Ratio: 1.38 Left Ventricle The left ventricle is normal size. There is hypokinesis in the inferior wall. There is normal left ventricular wall thickness. Left ventricular systolic function is mildly decreased. LVEF is 45%. Grade I - abnormal relaxation pattern. Right Ventricle The right ventricle is normal size. The right ventricular systolic function is normal. Atria Left atrium is dilated. The right atrium size is normal. Aortic Valve The aortic valve is normal in structure. No aortic regurgitation is present. There is no aortic valvular stenosis. Mitral Valve The mitral valve is normal in structure. Mild mitral regurgitation. No evidence of mitral valve stenosis. Tricuspid Valve The tricuspid valve is normal in structure. There is no tricuspid valve regurgitation noted. Pulmonic Valve The pulmonary valve is normal in structure. There is no pulmonic valvular regurgitation. Great Vessels The aortic root is normal in size. IVC is normal in size and collapses >50% with inspiration. [facility] [address] [place] [address] 2 D/M-MODE ECHOCARDIOGRAM Name: LUCY CALI Room #: REG [facility]#: [id number] Admission: 06/13/19 Attend Phys: Fahad Blue MD Discharge: Date of : 55 Report #: [id number] Pericardium There is no pericardial effusion. <Conclusion> The left ventricle is normal size. Left ventricular systolic function is mildly decreased. LVEF is 45%. There is hypokinesis in the inferior wall. Grade I - abnormal relaxation pattern. The right ventricle is normal size. Left atrium is dilated. The aortic valve is normal in structure. Mild mitral regurgitation. There is no tricuspid valve regurgitation noted. <ELECTRONICALLY SIGNED> By: Fahad Blue MD 06/13/19 1512 11 11 Fahad Blue MD /ОЛЬГА
== END ==
LOC: CV 05-06 10:24
DX: I34.0 Nonrheumatic mitral (valve) insufficiency (principal); J44.9 Chronic obstructive pulmonary disease, unspecified; I25.10 Atherosclerotic heart disease of native coronary artery without angina pectoris; I10 Essential (primary) hypertension